=== PATIENT | male | born 1945 | race Caucasian/White ===

== ENCOUNTER 2020-07-05 20:21 | Inpatient (IN) ==
[2020-07-05 21:39] LABS: Basophils # (auto) 0.01 K/uL (0-0.2); Basophils % (auto) 0.1 %; Eosinophils # (auto) 0.09 K/uL (0-0.5); Eosinophils % (auto) 1.3 %; Hematocrit (blood only) 38.9 % (42-52); Hemoglobin 13.5 g/dL (14.0-18.0); Immature Granulocytes # (auto) 0.02 K/uL (0.00-0.02); Immature Granulocytes % (auto) 0.3 %; Lymphocytes # (auto) 1.96 K/uL (1.2-3.4); Lymphocytes % (auto) 27.7 %; Mean Corpuscular Hemoglobin 31.8 pg (25-34); Mean Corpuscular Hgb Conc 34.7 g/dL (32-36); Mean Corpuscular Volume 91.5 fL (80-100); Mean Platelet Volume 9.3 fL (7.4-10.4); Monocytes # (auto) 0.65 K/uL (0.11-0.59); Monocytes % (auto) 9.2 %; Neutrophils # (auto) 4.34 K/uL (1.4-6.5); Neutrophils % (auto) 61.4 %; Platelet Count 249 K/uL (130-400); RDW Coefficient of Variation 12.8 % (11.5-14.5); Red Blood Count 4.25 M/uL (4.7-6.1); White Blood Count 7.07 K/uL (4.8-10.8)
[2020-07-05 21:43] LABS: BUN Creatinine Ratio 23.9 (10-20); Calcium 9.3 mg/dl (8.5-10.1); Creatinine Clr Calc Pharmacy 75.2 ml/min; Est GFR (African American) 103.2; Est GFR (Non-African American) 89.1; Magnesium 2.1 mg/dl (1.8-2.4); Potassium 3.3 mmol/L (3.5-5.1)
[2020-07-05 21:52] LABS: Partial Thromboplastin Ratio 0.9; Partial Thromboplastin Time 23.5 Seconds (21.0-31.0)
[2020-07-05] MEDS ORDERED: levETIRAcetam 1,000 MG in 0.9 % SODIUM CHLORIDE 100 ML IV STA (22:23)
--- NOTE | 2020-07-05 23:35 | History & Physical Report ---
Date of Service July 05, 2020 Assessment & Plan (1) Generalized seizure: Jayme Butler is a 74-year-old male with past medical history significant for neuropathy, tobacco use, and questionable seizure disorder; presents to the ER today following concern for seizure lasting approximately 1 minute. Seizure: -Uncertain etiology of patient's potential underlying seizure disorder -Labs on admission unimpressive for significant electrolyte abnormalities or potential sources for seizure -CT head demonstrating atherosclerotic calcifications within the anterior cranial vasculature, polyps versus mucous retention cyst and sinuses, chronic appearing small vessel ischemic disease with cerebral volume loss, however no acute intracranial abnormalities reported per VANNA Swanson loaded in ED -Neurology consulted appreciate recommendations -EEG ordered -Continue seizure precautions -Continue to monitor and replete electrolytes as needed -TSH in a.m. Peripheral neuropathy: -Continue gabapentin 100 mg TID Tobacco use: -Nicotine patch daily Diet: Regular CODE STATUS: Full code DVT prophylaxis: Deferred at this time Dispo: Admit to [facility] for continued observation (2) Peripheral neuropathy: (3) Tobacco use: History of Present Illness Primary Care Provider: NO PCP Jayme Butler is a 74-year-old male with past medical history significant for neuropathy, tobacco use, and questionable seizure disorder; presents to the ER today following concern for seizure lasting approximately 1 minute. Patient was with his sister when the seizure happened and reports that it lasted approximately 1 minute, however patient has no recollection of the seizure or any activity immediately preceding or following. Recognizes that he has previously been told he has a seizure disorder that last happened last year when patient was in [place]. During my interview with the patient, family was not available for collateral information. However according to ER provider during his conversations with patient's sister he reportedly did have urinary incontinence at that time, and generalized seizure-like activity. Patient does not regularly take medications for seizures, however is on gabapentin 100 mg for peripheral neuropathy (specifically in his legs) Allergies Allergy/AdvReac Type Severity Reaction Status Date / Time No Known Allergies Allergy Unverified 07/05/20 21:42 Home Medications Medication Instructions Recorded Confirmed Type acetaminophen [Tylenol Extra 1,000 mg PO Q6H PRN 07/05/20 07/05/20 History Strength] gabapentin 100 mg PO TID 07/05/20 07/05/20 History ibuprofen 400 mg PO Q6H PRN 07/05/20 07/05/20 History Past Med/Surg History Medical History No pertinent past medical history Surgical History No pertinent past surgical history Social History Smoking Status: Current every day smoker Tobacco Type: Cigarettes Second Hand Exposure: No; Do You Dip or Chew Tobacco: No; Tobacco Cessation Education Requested by Patient: No Hx Alcohol Use: No Hx Substance Use: No Preferred Language: Belarusian Communication Ability: Effective Hydroponics Worker Required: No Beliefs That Will Affect Care: None marital status: Current Living Situation: Family Current Living Situation Comment: lives with sister. Other Information That Helps Us Care for You: No Feels Safe at Home: Yes Safety Concerns: Feels Safe At This Time Assistive Devices: Cane Review of Systems Review of Systems: All systems reviewed & are unremarkable except as noted in HPI & below Physical Exam Constitutional: WD/WN, vitals as above + lethargic Eyes: PERRL, conjunctivae normal, anicteric sclerae Respiratory: normal respiratory effort, lungs clear to auscultation Auscultation: no crackles, no rales, no rhonchi and no wheezes Cardiovascular: Rate/Rhythm: regular rate and regular rhythm Heart Sounds: no gallop, no murmur and no cardiac rub Vessels: normal peripheral pulses; no JVD Extremities: no edema Gastrointestinal (Abdomen): Inspection/Auscultation: normal bowel sounds; abdomen not distended Percussion/Palpation: abdomen soft; abdomen nontender and no guarding Musculoskeletal: no cyanosis or clubbing, extremities motor strength 5/5 Skin: no rashes, warm and dry Neurologic: PERRL, EOMI, accommodation nl, no face palsy, no dysarthria CN's II-XI intact bilaterally and moves all extremities Psychiatric: Orientation: alert and oriented x 3 Results & Data Results & Data ([facility]) Vital Signs (Past 12 Hours) Vital Signs Temp Pulse Resp BP Pulse Ox 07/05/20 23:00 79 20 148/83 H 97 07/05/20 22:30 75 17 150/92 H 98 07/05/20 22:00 81 17 150/93 H 97 07/05/20 21:23 97 07/05/20 21:00 81 21 152/82 H 95 07/05/20 20:27 36.5 C 81 18 133/74 96 Laboratory Results 07/05/20 07/05/20 07/05/20 Range/Units 22:45 22:45 21:44 WBC (4.8-10.8) K/uL RBC (4.7-6.1) M/uL Hgb (14.0-18.0) g/dL Hct (42-52) % MCV (80-100) fL MCH (25-34) pg MCHC (32-36) g/dL RDW Std Deviation (36.4-46.3) fL RDW Coeff of Sabra (11.5-14.5) % Plt Count (130-400) K/uL MPV (7.4-10.4) fL Immature Gran % (Auto) % Neut % (Auto) % Lymph % (Auto) % [place] % (Auto) % Eos % (Auto) % Baso % (Auto) % Neut # (Auto) (1.4-6.5) K/uL Lymph # (Auto) (1.2-3.4) K/uL [place] # (Auto) (0.11-0.59) K/uL Eos # (Auto) (0-0.5) K/uL Baso # (Auto) (0-0.2) K/uL Immature Gran # (Auto) (0.00-0.02) K/uL PT (9.0-12.0) Seconds INR (0.9-1.1) APTT (21.0-31.0) Seconds PTT Ratio Sodium (136-145) mmol/L Potassium (3.5-5.1) mmol/L Chloride (98-107) mmol/L Carbon Dioxide (21-32) mmol/L Anion Gap (3-11) BUN (7-18) mg/dl Creatinine (0.6-1.4) mg/dl Est Cr Clr Drug Dosing ml/min Est GFR ( Amer) Est GFR (Non-Af Amer) BUN/Creatinine Ratio (10-20) Glucose (70-99) mg/dl Lactate 1.2 (0.4-2.0) mmol/L Calcium (8.5-10.1) mg/dl Magnesium (1.8-2.4) mg/dl Prolactin ng/ml COVID-19 Eval Order CovFluRsv at [facility] SARS-CoV-2 (PCR) NEGATIVE (Negative) Influenza Type A (PCR) Negative (Neg) Influenza Type B (PCR) Negative (Neg) RSV (RT-PCR) Negative (Neg) 07/05/20 07/05/20 07/05/20 Range/Units 20:38 20:38 20:38 WBC (4.8-10.8) K/uL RBC (4.7-6.1) M/uL Hgb (14.0-18.0) g/dL Hct (42-52) % MCV (80-100) fL MCH (25-34) pg MCHC (32-36) g/dL RDW Std Deviation (36.4-46.3) fL RDW Coeff of Sabra (11.5-14.5) % Plt Count (130-400) K/uL MPV (7.4-10.4) fL Immature Gran % (Auto) % Neut % (Auto) % Lymph % (Auto) % [place] % (Auto) % Eos % (Auto) % Baso % (Auto) % Neut # (Auto) (1.4-6.5) K/uL Lymph # (Auto) (1.2-3.4) K/uL [place] # (Auto) (0.11-0.59) K/uL Eos # (Auto) (0-0.5) K/uL Baso # (Auto) (0-0.2) K/uL Immature Gran # (Auto) (0.00-0.02) K/uL PT 10.0 (9.0-12.0) Seconds INR 1.0 (0.9-1.1) APTT 23.5 (21.0-31.0) Seconds PTT Ratio 0.9 Sodium 139 (136-145) mmol/L Potassium 3.3 L (3.5-5.1) mmol/L Chloride 107 (98-107) mmol/L Carbon Dioxide 27 (21-32) mmol/L Anion Gap 5.0 (3-11) BUN 19 H (7-18) mg/dl Creatinine 0.79 (0.6-1.4) mg/dl Est Cr Clr Drug Dosing 75.2 ml/min Est GFR ( Amer) 103.2 Est GFR (Non-Af Amer) 89.1 BUN/Creatinine Ratio 23.9 H (10-20) Glucose 99 (70-99) mg/dl Lactate (0.4-2.0) mmol/L Calcium 9.3 (8.5-10.1) mg/dl Magnesium 2.1 (1.8-2.4) mg/dl Prolactin 27.10 ng/ml COVID-19 Eval Order SARS-CoV-2 (PCR) (Negative) Influenza Type A (PCR) (Neg) Influenza Type B (PCR) (Neg) RSV (RT-PCR) (Neg) 07/05/20 Range/Units 20:38 WBC 7.07 (4.8-10.8) K/uL RBC 4.25 L (4.7-6.1) M/uL Hgb 13.5 L (14.0-18.0) g/dL Hct 38.9 L (42-52) % MCV 91.5 (80-100) fL MCH 31.8 (25-34) pg MCHC 34.7 (32-36) g/dL RDW Std Deviation 43.0 (36.4-46.3) fL RDW Coeff of Sabra 12.8 (11.5-14.5) % Plt Count 249 (130-400) K/uL MPV 9.3 (7.4-10.4) fL Immature Gran % (Auto) 0.3 % Neut % (Auto) 61.4 % Lymph % (Auto) 27.7 % [place] % (Auto) 9.2 % Eos % (Auto) 1.3 % Baso % (Auto) 0.1 % Neut # (Auto) 4.34 (1.4-6.5) K/uL Lymph # (Auto) 1.96 (1.2-3.4) K/uL [place] # (Auto) 0.65 H (0.11-0.59) K/uL Eos # (Auto) 0.09 (0-0.5) K/uL Baso # (Auto) 0.01 (0-0.2) K/uL Immature Gran # (Auto) 0.02 (0.00-0.02) K/uL PT (9.0-12.0) Seconds INR (0.9-1.1) APTT (21.0-31.0) Seconds PTT Ratio Sodium (136-145) mmol/L Potassium (3.5-5.1) mmol/L Chloride (98-107) mmol/L Carbon Dioxide (21-32) mmol/L Anion Gap (3-11) BUN (7-18) mg/dl Creatinine (0.6-1.4) mg/dl Est Cr Clr Drug Dosing ml/min Est GFR ( Amer) Est GFR (Non-Af Amer) BUN/Creatinine Ratio (10-20) Glucose (70-99) mg/dl Lactate (0.4-2.0) mmol/L Calcium (8.5-10.1) mg/dl Magnesium (1.8-2.4) mg/dl Prolactin ng/ml COVID-19 Eval Order SARS-CoV-2 (PCR) (Negative) Influenza Type A (PCR) (Neg) Influenza Type B (PCR) (Neg) RSV (RT-PCR) (Neg) Diagnostic Findings CT HEAD: Comparison is made to CT head on 04/29/2020. No acute intracranial abnormality identified. Prominent chronic small vessel ischemic disease and cerebral volume loss, similar compared to prior exam. Polyps versus mucous retention cysts in the maxillary sinuses, left sphenoid sinus, and left ethmoid air cells. Mild mucosal thickening in the ethmoid air cells. Atherosclerotic calcifications in the intracranial vasculature. Radiologist: Sana Rodríguez M.D. Medications Administered Current Inpatient Medications Acetaminophen (Acetaminophen 325 Mg Tab) 650 mg PO Q4H PRN PRN Reason: pain/fever Stop: 08/05/20 00:41 Al Hydrox/Mg Hydrox/Simethicone (Aluminum/Magnesium Susp 30 Ml Udc) 30 ml PO Q6H PRN PRN Reason: Dyspepsia Stop: 08/05/20 00:41 Gabapentin (Gabapentin 100 Mg Cap) 100 mg PO TID KERVIN Stop: 08/05/20 08:59 Magnesium Hydroxide (Magnesium Hydroxide Susp 30 Ml Udc) 30 ml PO Q6H PRN PRN Reason: Constipation Stop: 08/05/20 00:41 Ondansetron HCl (Ondansetron Inj 2 Mg/Ml 2 Ml Vial) 4 mg IV Q6H PRN PRN Reason: Nausea Stop: 08/05/20 00:41 Polyethylene Glycol (Polyethylene (Miralax) 17 Gm Pack) 17 gm PO DAILY PRN PRN Reason: Constipation Stop: 08/05/20 00:41 Supervising Physician Co-Signing Physician Notes Attending addendum: I have physically seen this patient, have supervised the medical residents activities, and agree with the H&P unless as otherwise noted. Assessment and Plan: Seizure activity- Loaded with Keppra in ED, continue 500 mg IV twice daily Seizure precautions order EEG and MRI brain Consult neurology Peripheral neuropathy- Continue gabapentin 100 mg p.o. 3 times daily Tobacco use disorder- Nicotine patch Remaining orders and notations as noted Resident Activity Tracking Resident Involvement: Resident Care Provided Care Provided: Adult Hospital Medicine
[2020-07-05 23:40] LABS: Influenza A virus by PCR Negative (Neg); Influenza B virus by PCR Negative (Neg); RSV by PCR Negative (Neg); SARS CoV2 RNA(COVID-19) InHosp NEGATIVE (Negative)
--- NOTE | 2020-07-06 00:09 | Emergency Department Note ---
History of Present Illness General Chief complaint: Seizure Time Seen by Provider: 07/05/20 21:14 Source: patient and family (Sister) History of Present Illness Provider complaint: Seizure Onset (ago): hour(s) 2 Associated symptoms: + seizure; no chest pain, no cough, no fever/chills, no headaches, no nausea/vomiting, no rash, no shortness of breath, no syncope and no weakness 74-year-old male presents emergency department with his sister at bedside for seizure. Seizure reports at approximately 1930 the patient had a seizure. Patient did not hit his head. Patient was sitting down. Sister reports that seizure lasted approximately 1 minute. Patient reports he did not remember anything. Patient did not bite his tongue. Patient did have urinary incontinence. Patient sister states that the patient has had a history of seizures in the past. She reports that the patient has been having increasing abnormal behavior. She states this happened roughly in November when he was in [place] and she thinks that the patient had a traumatic brain injury in [place]. She st ates that the patient did not know what happened and woke up in a [place] hospital. Patient is not on any seizure medications but is on gabapentin 100 mg p.o. 3 times daily for his neuropathy and bilateral lower extremity pain. Home Medications Medication Instructions Recorded Confirmed Type acetaminophen [Tylenol Extra 1,000 mg PO Q6H PRN 07/05/20 07/05/20 History Strength] gabapentin 100 mg PO TID 07/05/20 07/05/20 History ibuprofen 400 mg PO Q6H PRN 07/05/20 07/05/20 History Allergies Allergy/AdvReac Type Severity Reaction Status Date / Time No Known Allergies Allergy Unverified 07/05/20 21:42 Past Med/Surg History Medical History No pertinent past medical history Surgical History No pertinent past surgical history Social History Smoking Status: Current every day smoker Tobacco Type: Cigarettes Hx Alcohol Use: No Hx Substance Use: No Feels Safe at Home: Yes Review of Systems A total of 10 systems reviewed and were otherwise negative Physical Exam Vital Signs Vital Signs - 24 hr 07/05/20 20:27 07/05/20 21:00 07/05/20 21:23 Temperature 36.5 C Temperature Source Oral Pulse Rate 81 81 Pulse Rate from SpO2 Sensor 79 Respiratory Rate 18 21 Blood Pressure 133/74 152/82 H Blood Pressure Mean 93 105 Pulse Oximetry 96 95 97 Oxygen Delivery Method Room Air Room Air Room Air Sepsis Recent Fever Within 48 Hours No Sepsis New/Unexplained Change in Mental Status N/A Sepsis Action Taken by Nursing No Action Required 07/05/20 22:00 07/05/20 22:30 07/05/20 23:00 Temperature Temperature Source Pulse Rate 81 75 79 Pulse Rate from SpO2 Sensor 85 71 78 Respiratory Rate 17 17 20 Blood Pressure 150/93 H 150/92 H 148/83 H Blood Pressure Mean 112 111 104 Pulse Oximetry 97 98 97 Oxygen Delivery Method Room Air Room Air Room Air Sepsis Recent Fever Within 48 Hours Sepsis New/Unexplained Change in Mental Status Sepsis Action Taken by Nursing 07/05/20 23:30 07/06/20 00:00 Temperature Temperature Source Pulse Rate 80 70 Pulse Rate from SpO2 Sensor Respiratory Rate 20 18 Blood Pressure 141/85 H 125/79 Blood Pressure Mean 103 94 Pulse Oximetry 99 99 Oxygen Delivery Method Room Air Room Air Sepsis Recent Fever Within 48 Hours Sepsis New/Unexplained Change in Mental Status Sepsis Action Taken by Nursing Physical Exam GENERAL: He is oriented to person, place, and time. He appears well-developed and well-nourished. He does not appear distressed. HENT: Exam performed. - Head: Normocephalic and atraumatic. - Right Ear: External ear normal. No mastoid tenderness. - Left Ear: External ear normal. No mastoid tenderness. - Mouth/Throat: The oropharynx is clear and moist. No trismus in the jaw. No dental abscesses or uvula swelling. No oropharyngeal exudate or tonsillar abscesses. Multiple missing teeth that is chronic. No evidence of tongue bite. EYES: Conjunctivae and EOM are normal. Pupils are equal, round, and reactive to light. Right eye exhibits no discharge. Left eye exhibits no discharge. No scleral icterus. NECK: Normal range of motion. Neck supple. No JVD present. No spinous process tenderness present. No carotid bruit present. No rigidity. No tracheal deviation and normal range of motion present. No Brudzinski's sign and no Kernig's sign noted. CV: Normal rate, regular rhythm, normal heart sounds and intact distal pulses. There is no peripheral edema. Palpable radial pulses bue. PULM/CHEST: Effort normal and breath sounds normal. No respiratory distress. No stridor. He has no wheezes. He has no rales. - Chest Wall: He exhibits no tenderness. ABD: The abdomen is soft. Bowel sounds are normal. He has no distension. No mass is present. There is no tenderness. There is no rebound, no guarding, no Avalos's sign and no tenderness at McBurney's point. Rovsig negative. MUSC/SKEL: Normal range of motion. There is no peripheral edema, tenderness or deformity. LYMPH: No cervical adenopathy. NEURO: He is alert and oriented to person, place, and time. He has normal strength. No cranial nerve deficit or sensory deficit. Coordination and gait normal. GCS eye subscore is 4. GCS verbal subscore is 5. GCS motor subscore is 6. Cerebellar tests wnl. SKIN: Skin is warm and dry. He is not diaphoretic. PSYCH: He has a normal mood and affect. Behavior is normal. Judgment and thought content normal. Course Course 2113: The patient was evaluated in room C4. A complete history and physical exam was performed Cardiac monitoring: An order was placed for continuous cardiac monitoring. The monitor shows a rate of 80 with sinus rhythm I explained to the patient and the patient sister at bedside that we did initiate a work-up consisting of CT of the head and lab work. The sister was very upset and stated that his CT would not be helpful and is asking that the patient be evaluated by neurologist immediately. I explained to her that there is no need to call in the neurologist from home at this time and that we would start with the initial work-up plan as planned and then contact neurology as needed. 2229: Vital signs stable. Patient has had no seizure-like activity in the emerg ency department. CT of the head within normal limits. Lactic acid within normal limits. Prolactin is elevated consistent with the history of seizure. I discussed the case with the neurologist on-call Dr. Virk. I explained to her that I felt that the patient should be admitted to the hospital. She recommends starting the patient on Keppra 1 g IV piggyback and then she will evaluate the patient in the morning. She recommends a nonemergent MRI of the brain. Discussed with the hospitalist team Dr. Leblanc who will evaluate the patient. I did inform the sister at bedside and she thanked me for admitting the patient to the hospital for neurology evaluation. Administered Medications Discontinued Medications Levetiracetam 1,000 mg/ Sodium (Chloride) 110 mls @ 440 mls/hr IV NOW STA Stop: 07/05/20 22:37 Last Infusion: 07/05/20 23:03 Dose: 0 mls/hr Documented by: [id number] Admin: 07/05/20 22:47 Dose: 440 mls/hr Documented by: [id number] Medical Decision Making Laboratory Data Result diagrams: 07/05/20 20:38 07/05/20 20:38 Lab Results 07/05/20 07/05/20 07/05/20 Range/Units 20:38 20:38 20:38 WBC 7.07 (4.8-10.8) K/uL RBC 4.25 L (4.7-6.1) M/uL Hgb 13.5 L (14.0-18.0) g/dL Hct 38.9 L (42-52) % MCV 91.5 (80-100) fL MCH 31.8 (25-34) pg MCHC 34.7 (32-36) g/dL RDW Std Deviation 43.0 (36.4-46.3) fL RDW Coeff of Sabra 12.8 (11.5-14.5) % Plt Count 249 (130-400) K/uL MPV 9.3 (7.4-10.4) fL Immature Gran % (Auto) 0.3 % Neut % (Auto) 61.4 % Lymph % (Auto) 27.7 % [place] % (Auto) 9.2 % Eos % (Auto) 1.3 % Baso % (Auto) 0.1 % Neut # (Auto) 4.34 (1.4-6.5) K/uL Lymph # (Auto) 1.96 (1.2-3.4) K/uL [place] # (Auto) 0.65 H (0.11-0.59) K/uL Eos # (Auto) 0.09 (0-0.5) K/uL Baso # (Auto) 0.01 (0-0.2) K/uL Immature Gran # (Auto) 0.02 (0.00-0.02) K/uL PT 10.0 (9.0-12.0) Seconds INR 1.0 (0.9-1.1) APTT 23.5 (21.0-31.0) Seconds PTT Ratio 0.9 Sodium 139 (136-145) mmol/L Potassium 3.3 L (3.5-5.1) mmol/L Chloride 107 (98-107) mmol/L Carbon Dioxide 27 (21-32) mmol/L Anion Gap 5.0 (3-11) BUN 19 H (7-18) mg/dl Creatinine 0.79 (0.6-1.4) mg/dl Est Cr Clr Drug Dosing 75.2 ml/min Est GFR ( Amer) 103.2 Est GFR (Non-Af Amer) 89.1 BUN/Creatinine Ratio 23.9 H (10-20) Glucose 99 (70-99) mg/dl Lactate (0.4-2.0) mmol/L Calcium 9.3 (8.5-10.1) mg/dl Magnesium 2.1 (1.8-2.4) mg/dl Prolactin ng/ml COVID-19 Eval Order SARS-CoV-2 (PCR) (Negative) Influenza Type A (PCR) (Neg) Influenza Type B (PCR) (Neg) RSV (RT-PCR) (Neg) 07/05/20 07/05/20 07/05/20 Range/Units 20:38 21:44 22:45 WBC (4.8-10.8) K/uL RBC (4.7-6.1) M/uL Hgb (14.0-18.0) g/dL Hct (42-52) % MCV (80-100) fL MCH (25-34) pg MCHC (32-36) g/dL RDW Std Deviation (36.4-46.3) fL RDW Coeff of Sabra (11.5-14.5) % Plt Count (130-400) K/uL MPV (7.4-10.4) fL Immature Gran % (Auto) % Neut % (Auto) % Lymph % (Auto) % [place] % (Auto) % Eos % (Auto) % Baso % (Auto) % Neut # (Auto) (1.4-6.5) K/uL Lymph # (Auto) (1.2-3.4) K/uL [place] # (Auto) (0.11-0.59) K/uL Eos # (Auto) (0-0.5) K/uL Baso # (Auto) (0-0.2) K/uL Immature Gran # (Auto) (0.00-0.02) K/uL PT (9.0-12.0) Seconds INR (0.9-1.1) APTT (21.0-31.0) Seconds PTT Ratio Sodium (136-145) mmol/L Potassium (3.5-5.1) mmol/L Chloride (98-107) mmol/L Carbon Dioxide (21-32) mmol/L Anion Gap (3-11) BUN (7-18) mg/dl Creatinine (0.6-1.4) mg/dl Est Cr Clr Drug Dosing ml/min Est GFR ( Amer) Est GFR (Non-Af Amer) BUN/Creatinine Ratio (10-20) Glucose (70-99) mg/dl Lactate 1.2 (0.4-2.0) mmol/L Calcium (8.5-10.1) mg/dl Magnesium (1.8-2.4) mg/dl Prolactin 27.10 ng/ml COVID-19 Eval Order CovFluRsv at [facility] SARS-CoV-2 (PCR) (Negative) Influenza Type A (PCR) (Neg) Influenza Type B (PCR) (Neg) RSV (RT-PCR) (Neg) 07/05/20 Range/Units 22:45 WBC (4.8-10.8) K/uL RBC (4.7-6.1) M/uL Hgb (14.0-18.0) g/dL Hct (42-52) % MCV (80-100) fL MCH (25-34) pg MCHC (32-36) g/dL RDW Std Deviation (36.4-46.3) fL RDW Coeff of Sabra (11.5-14.5) % Plt Count (130-400) K/uL MPV (7.4-10.4) fL Immature Gran % (Auto) % Neut % (Auto) % Lymph % (Auto) % [place] % (Auto) % Eos % (Auto) % Baso % (Auto) % Neut # (Auto) (1.4-6.5) K/uL Lymph # (Auto) (1.2-3.4) K/uL [place] # (Auto) (0.11-0.59) K/uL Eos # (Auto) (0-0.5) K/uL Baso # (Auto) (0-0.2) K/uL Immature Gran # (Auto) (0.00-0.02) K/uL PT (9.0-12.0) Seconds INR (0.9-1.1) APTT (21.0-31.0) Seconds PTT Ratio Sodium (136-145) mmol/L Potassium (3.5-5.1) mmol/L Chloride (98-107) mmol/L Carbon Dioxide (21-32) mmol/L Anion Gap (3-11) BUN (7-18) mg/dl Creatinine (0.6-1.4) mg/dl Est Cr Clr Drug Dosing ml/min Est GFR ( Amer) Est GFR (Non-Af Amer) BUN/Creatinine Ratio (10-20) Glucose (70-99) mg/dl Lactate (0.4-2.0) mmol/L Calcium (8.5-10.1) mg/dl Magnesium (1.8-2.4) mg/dl Prolactin ng/ml COVID-19 Eval Order SARS-CoV-2 (PCR) NEGATIVE (Negative) Influenza Type A (PCR) Negative (Neg) Influenza Type B (PCR) Negative (Neg) RSV (RT-PCR) Negative (Neg) Imaging Data Radiologist's Impression: Preliminary Findings Only See Final Report For Complete Findings CT HEAD: Comparison is made to CT head on 04/29/2020. No acute intracranial abnormality identified. Prominent chronic small vessel ischemic disease and cerebral volume loss, similar compared to prior exam. Polyps versus mucous retention cysts in the maxillary sinuses, left sphenoid sinus, and left ethmoid air cells. Mild mucosal thickening in the ethmoid air cells. Atherosclerotic calcifications in the intracranial vasculature. Radiologist: Sana Rodríguez M.D. Study ready at 22:01 and initial results transmitted at 22:09 MDM Narrative 2113: The patient was evaluated in room C4. A complete history and physical exam was performed Cardiac monitoring: An order was placed for continuous cardiac monitoring. The monitor shows a rate of 80 with sinus rhythm I explained to the patient and the patient sister at bedside that we did initiate a work-up consisting of CT of the head and lab work. The sister was very upset and stated that his CT would not be helpful and is asking that the p atient be evaluated by neurologist immediately. I explained to her that there is no need to call in the neurologist from home at this time and that we would start with the initial work-up plan as planned and then contact neurology as needed. 2230: Vital signs stable. Patient has had no seizure-like activity in the emergency department. CT of the head within normal limits. Lactic acid within normal limits. Prolactin is elevated consistent with the history of seizure. I discussed the case with the neurologist on-call Dr. Virk. I explained to her that I felt that the patient should be admitted to the hospital. She recommends starting the patient on Keppra 1 g IV piggyback and then she will evaluate the patient in the morning. She recommends a nonemergent MRI of the brain. Discussed with the hospitalist team Dr. Leblanc who will evaluate the patient. I did inform the sister at bedside and she thanked me for admitting the patient to the hospital for neurology evaluation. Impression & Plan Generalized seizure Discharge Plan Visit Data Chief Complaint: Seizure ED Provider: Rob Ramirez Discharge Problem: Generalized seizure Patient Disposition: Admitted As Inpatient Forms Stand Alone Forms: My [facility] Prescriptions Prescriptions: No Action acetaminophen [Tylenol Extra Strength] 500 mg Tablet 1,000 mg PO Q6H PRN (Reason: Pain) RF: 0 ibuprofen 200 mg Tablet 400 mg PO Q6H PRN (Reason: Pain) RF: 0 gabapentin 100 mg capsule 100 mg PO TID RF: 0 Referrals Referrals: PCP,NO [Primary Care Provider] -
[2020-07-06] MEDS ORDERED: MAGNESIUM HYDROXIDE SUSP 30 ML UDC PO PRN (00:42)
[2020-07-06] MEDS ORDERED: ACETAMINOPHEN 325 MG TAB PO PRN (00:42)
[2020-07-06] MEDS ORDERED: ONDANSETRON INJ 2 MG/ML 2 ML VIAL IV PRN (00:42)
[2020-07-06] MEDS ORDERED: POLYETHYLENE (MIRALAX) 17 GM PACK PO PRN (00:42)
[2020-07-06] MEDS ORDERED: ALUMINUM/MAGNESIUM SUSP 30 ML UDC PO PRN (00:42)
[2020-07-06 05:13] LABS: Appearance Urine Clear (Clear); Bilirubin Urine Negative (Negative); Blood Urine Negative (Negative); Color Urine Yellow; Glucose Urine UA Negative (Negative); Ketones Urine Trace (Negative); Leukocyte Esterase Urine Negative (Negative); Nitrite Urine Negative (Negative); Protein Urine Negative (Negative); Specific Gravity Urine 1.013 (1.000-1.030); Urobilinogen Urine Negative (Negative)
[2020-07-06 06:49] LABS: Basophils # (auto) 0.01 K/uL (0-0.2); Basophils % (auto) 0.2 %; Eosinophils # (auto) 0.04 K/uL (0-0.5); Eosinophils % (auto) 0.7 %; Hemoglobin 12.6 g/dL (14.0-18.0); Immature Granulocytes # (auto) 0.01 K/uL (0.00-0.02); Immature Granulocytes % (auto) 0.2 %; Lymphocytes # (auto) 1.51 K/uL (1.2-3.4); Mean Corpuscular Hemoglobin 32.1 pg (25-34); Mean Corpuscular Volume 91.6 fL (80-100); Mean Platelet Volume 8.9 fL (7.4-10.4); Monocytes # (auto) 0.58 K/uL (0.11-0.59); Monocytes % (auto) 10.8 %; Neutrophils # (auto) 3.24 K/uL (1.4-6.5); Neutrophils % (auto) 60.1 %; Platelet Count 235 K/uL (130-400); RDW Coefficient of Variation 12.9 % (11.5-14.5); RDW Standard Deviation 43.7 fL (36.4-46.3); Red Blood Count 3.93 M/uL (4.7-6.1); White Blood Count 5.39 K/uL (4.8-10.8)
[2020-07-06 07:04] LABS: BUN Creatinine Ratio 20.9 (10-20); Calcium 9.1 mg/dl (8.5-10.1); Creatinine Clr Calc Pharmacy 79.5 ml/min; Est GFR (African American) 107.3; Est GFR (Non-African American) 92.5; Magnesium 2.1 mg/dl (1.8-2.4); Potassium 3.7 mmol/L (3.5-5.1)
[2020-07-06 07:15] LABS: Phosphorus 3.4 mg/dl (2.5-4.9); Thyroid Stimulating Hormone 0.56 uIu/ml (0.300-4.500)
--- NOTE | 2020-07-06 07:31 | CT Scan Report ---
CT head/brain wo con CLINICAL HISTORY: seizure COMPARISON STUDY: 09/26 2020 TECHNIQUE: Axial CT of the brain is performed from the vertex to the skull base. IV contrast was not administered for this examination. A dose lowering technique was utilized adhering to the principles of ALARA. CT DOSE: 614.27 mGy.cm FINDINGS: No intra or extra-axial mass lesions are visualized. There is no CT evidence of acute cortical infarc tion. There is no evidence of midline shift. There is no acute hemorrhage. No calvarial fractures ar e visualized. There are moderately extensive white matter hypodensities likely on a small vessel basis. There is no evidence of pathologic ventricular dilatation. There are maxillary sinus polyp/retention cyst.s. IMPRESSION: No acute intracranial findings ACT 112: Negative or not required by law. Electronically signed by: Efrem Meredith M.D. 07/06/2020 7:29 AM
[2020-07-06] MEDS: NICOTINE 14 MG/24 HR PATCH TD SCH (08:53)
[2020-07-06] MEDS: GABAPENTIN 100 MG CAP PO SCH ×3 (08:54→21:05)
--- NOTE | 2020-07-06 10:32 | Neurology Consultation ---
Date of Consultation July 06, 2020 Assessment & Plan (1) Generalized seizure: Jayme Butler is a 74 yo man w/ PMH of DM c/b neuropathy, tobacco abuse and memory issues who p/t [facility] after having a witnessed seizure. # Seizure: family reports that this is at least his second seizure that they are aware of - continue keppra 750mg bid - MRI brain w/ seizure protocol pending - EEG pending (can be done as an outpatient if he desires d/c today after MRI) - f/u with neurology clinic in 4-6 weeks to check in with JOLLY Wall # Memory issues: will need outpatient follow up for this. - recommend placing a formal neuropsych consultation as an outpatient (remainder of workup has already been completed with B12/TSH and MRI brain while admitted) Thank you for this interesting consult. Plan of care discussed with primary team. Please call or text with questions. History of Present Illness Attending Physician: Marco A Roman, History of Present Illness Jayme Butler is a 74 yo man w/ PMH of DM c/b neuropathy, tobacco abuse and memory issues who p/t [facility] after having a witnessed seizure. In the ED, sister reported that he had a witnessed seizure that lasted about 1 minute a/w loss of bladder but not bowel and no tongue biting. Patient is amnestic to event. Sister reported that he had one other seizure while staying in [place] this past summer/fall. He was afebrile, BP 133/74, heart rate 81, respiratory rate 18, satting 96% on room air. Labs notable for WBC 7.07, hemoglobin 13.5 with MCV 91.5, platelets 249, sodium 139, potassium low 3.3, creatinine 0.79, glucose 99, INR 1, anion gap 5, calcium/magnesium within normal, lactate 1.2, prolactin elevated to 27.1, Covid negative, UA no infection, TSH WNL. Imaging independently reviewed. CT head shows no hemorrhage or hypodensity, mild to moderate generalized atrophy with ex vacuo dilation, moderate SVID present. Loaded with 1g keppra in the ED. On examination, he reports that he was in his normal state of health yesterday but does not recall the event that brought him to the hospital. Does endorse occasional marijuana usage but none recently, denies alcohol use. Allergies Allergy/AdvReac Type Severity Reaction Status Date / Time No Known Allergies Allergy Unverified 07/05/20 21:42 Home Medications Medication Instructions Recorded Confirmed Type acetaminophen [Tylenol Extra 1,000 mg PO Q6H PRN 07/05/20 07/05/20 History Strength] gabapentin 100 mg PO TID 07/05/20 07/05/20 History ibuprofen 400 mg PO Q6H PRN 07/05/20 07/05/20 History Patient History Medical History No pertinent past medical history Surgical History No pertinent past surgical history Social History Smoking Status: Current every day smoker Tobacco Type: Cigarettes Second Hand Exposure: No; Do You Dip or Chew Tobacco: No; Tobacco Cessation Education Requested by Patient: No Hx Alcohol Use: No Hx Substance Use: No Preferred Language: Armenian Communication Ability: Effective 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 Other Information That Helps Us Care for You: No Feels Safe at Home: Yes Safety Concerns: Feels Safe At This Time Assistive Devices: Cane Review of Systems Review of Systems: 10 point review of systems completed and negative except as in HPI. Exam (Neuro) Physical Exam: General Exam: GEN: NAD, sitting in bed. HEENT: No conjunctival injection, no rhinorrhea. CV: RRR, no peripheral edema PULM: Nonlabored respirations on room air. Neuro Exam: MS: Awake and Alert. Oriented to person and year, not place or month. Speech fluent and appropriate without dysarthria or paraphasic errors. Language intact including naming, comprehension, repetition. Cognition and memory mildly impaired. Attention intact. No neglect. CN: Visual oro full. No extinction to double simultaneous stimuli. Unable to visualize fundi on fundoscopic exam. PERRLA OU. EOMI without nystagmus. Facial sensation intact to LT. Facial muscles full and symmetric. Hearing intact to conversation. Shoulder shrug normal. Tongue midline. MOTOR: Normal bulk and tone. No pronator drift. BUE strength 5/5 at deltoids, biceps, triceps, wrist flexors and extensors bilaterally. BLE strength 5/5 at iliopsoas, hamstrings, quadriceps, tibialis anterior, and gastrocnemius bilaterally. REFLEXES: Trace at biceps, triceps, brachioradialis, absent patella and absent Achilles bilaterally. Flexor plantar responses bilaterally. SENSORY: Intact to LT without extinction to double simultaneous stimuli. Vibration diminished in hands and BLEs up to the knees. COORDINATION: No dysmetria or ataxia on [id number] bilaterally. Normal Charlie bilaterally. GAIT: deferred given physical status Results & Data ([facility]) Vital Signs (Past 12 Hours) Vital Signs Temp Pulse Pulse Resp BP BP Pulse Ox 07/06/20 07:14 36.5 C 62 18 142/82 H 95 07/06/20 00:35 36.7 C 78 16 152/62 H 96 07/06/20 00:00 70 18 125/79 99 07/05/20 23:30 80 20 141/85 H 99 07/05/20 23:00 79 20 148/83 H 97 07/05/20 22:30 75 17 150/92 H 98 PG Care Time/CCT Total # of Minutes Spent Total Time Spent with Patient: Total time spent is greater than 50% in coordination of care (as documented) at patient's floor/unit and/or counseling patient: Coding Level of Care Code 77668 Initial Inpt Care Lvl 3 Diagnoses Generalized seizure R56.9
[2020-07-06] MEDS: levETIRAcetam 250 MG TAB PO SCH ×2 (11:02→21:04)
--- NOTE | 2020-07-06 13:50 | XRay Report ---
ORBIT RADIOGRAPHS 3 VIEWS HISTORY: pre-MRI screening. COMPARISON: None. FINDINGS: There are no radiopaque foreign bodies identified within the orbits. IMPRESSION: No radiopaque foreign bodies identified within the orbits. ACT 112: Negative or not required by law. Electronically signed by: Efrem Meredith M.D. 07/06/2020 1:48 PM
[2020-07-06] MEDS ORDERED: GADOBUTROL 65ML VIAL IV ONE (14:49)
--- NOTE | 2020-07-06 15:00 | Magnetic Resonance Report ---
MRI OF THE BRAIN WITHOUT AND WITH IV CONTRAST CLINICAL HISTORY: seizure COMPARISON STUDY: Noncontrast head CT dated 07/05/2020 TECHNIQUE: MRI of the brain was performed from the vertex to the skull base utilizing various T1 and T2 weighted sequences. Following the IV administration of 7 mL of Gadavist contrast, additional enhan jerrell images were obtained. FINDINGS: Sagittal T1, axial diffusion, proton density and T2 weighted axial, coronal FLAIR, and pre and post a xial T1-weighted images were acquired. These were supplemented with post gadolinium coronal T1 weight ed images. No intra or extra-axial mass lesions are visualized. Axial diffusion-weighted images reveal no evidence of acute or subacute infarction. There is mild ventricular dilatation, likely secondary to volume loss Proton density T2-weighted and FLAIR images reveal moderately extensive extensive foci of increased T 2 signal within the white matter, likely on a small vessel basis. There is a 3 mm right basal ganglia lacunar infarct There are no abnormal flow voids. There is no evidence of pathologic enhancement. IMPRESSION: 1. No acute intracranial findings 2. No evidence of acute or subacute infarction 3. No evidence of intracranial mass 4. Moderately extensive white matter disease, statistically on a small vessel basis ACT 112: Negative or not required by law. Electronically signed by: Efrem Meredith M.D. 07/06/2020 2:59 PM
--- NOTE | 2020-07-06 15:29 | Hospitalist Progress Note ---
Date of Service July 06, 2020 Assessment & Plan (1) Generalized seizure: Jayme Butler is a 74-year-old male with past medical history significant for neuropathy, tobacco use, and questionable seizure disorder; presents to the ER today following concern for seizure lasting approximately 1 minute. Seizure: -Uncertain etiology of patient's potential underlying seizure disorder -Labs on admission unimpressive for significant electrolyte abnormalities or potential sources for seizure -CT head : No acute intracranial findings -Brain MRI: No acute intracranial findings. No evidence of acute or subacute infarction. No evidence of intracranial mass. Moderately extensive white matter disease, statistically on a small vessel basis -Keppra loaded in ED. Continue keppra 750mg bid -Continue seizure precautions -TSH WNL -EEG pending but can be done as an outpatient -Neurology consulted appreciate recommendations. Will f/u with neurology clinic in 4-6 weeks to check in Memory issues: - will need outpatient follow up for this. - recommend a formal neuropsych consultation as an outpatient Peripheral neuropathy: -Continue gabapentin 100 mg TID Tobacco use: -Nicotine patch daily Diet: Regular CODE STATUS: Full code DVT prophylaxis: Deferred at this time Dispo: MedSurg for continued observation. Pt's sister will not take him back. CM working on [place] home in [facility] Admission and Anticipated Discharge Date Admission Date: July 05, 2020 Supervising Physician Co-Signing Physician Notes I personally examined the patient and verified all fuentes points of history and exam, discussed case, and agree with decision making with Dr Kilgore. feeling ok. doesn't recall seizure, didn't really know what a seizure was, but after i explained it, was able to express a reasonable understanding of dx and situation. vitals noted nad heent nc at mmm breathing unlabored no accessory muscles good effort skin no rashes no pallor or icterus neuro no focal deficits seizure -keppra secondary risk reduction homelessness -was living with sister who will not take him back now -working w case management on safe disposition [facility] -unethical to discharge to homelessness, will keep here until safe disposition can be arranged. Subjective Seen bedside, no acute overnight events. No additional seizures. Pt tolerating PO. No other acute concerns or complaints. Review of Systems Review of Systems: All systems reviewed & are unremarkable except as noted in HPI & below Physical Exam Constitutional: WD/WN, vitals as above Eyes: PERRL, conjunctivae normal, anicteric sclerae ENMT: external ear and nose normal, oropharynx normal Respiratory: normal respiratory effort, lungs clear to auscultation Cardiovascular: RRR, no murmur, no edema Gastrointestinal (Abdomen): normal bowel sounds, soft, nontender, no hepatosplenomegaly Skin: no rashes, warm and dry Psychiatric: A+Ox3, euthymic affect Results & Data Results & Data ([facility]) Vital Signs (Past 12 Hours) Vital Signs Temp Pulse Resp BP Pulse Ox 07/06/20 14:54 36.5 C 62 16 173/94 H 95 07/06/20 07:14 36.5 C 62 18 142/82 H 95 Laboratory Results Laboratory Results - last 24 hr 07/05/20 07/05/20 07/05/20 20:38 20:38 20:38 WBC 7.07 RBC 4.25 L Hgb 13.5 L Hct 38.9 L MCV 91.5 MCH 31.8 MCHC 34.7 RDW Std Deviation 43.0 RDW Coeff of Sabra 12.8 Plt Count 249 MPV 9.3 Immature Gran % (Auto) 0.3 Neut % (Auto) 61.4 Lymph % (Auto) 27.7 [place] % (Auto) 9.2 Eos % (Auto) 1.3 Baso % (Auto) 0.1 Neut # (Auto) 4.34 Lymph # (Auto) 1.96 [place] # (Auto) 0.65 H Eos # (Auto) 0.09 Baso # (Auto) 0.01 Immature Gran # (Auto) 0.02 PT 10.0 INR 1.0 APTT 23.5 PTT Ratio 0.9 Sodium 139 Potassium 3.3 L Chloride 107 Carbon Dioxide 27 Anion Gap 5.0 BUN 19 H Creatinine 0.79 Est Cr Clr Drug Dosing 75.2 Est GFR ( Amer) 103.2 Est GFR (Non-Af Amer) 89.1 BUN/Creatinine Ratio 23.9 H Glucose 99 Lactate Calcium 9.3 Phosphorus Magnesium 2.1 Vitamin B12 TSH Prolactin Urine Color Urine Appearance Urine pH Ur Specific [place] Urine Protein Urine Glucose (UA) Urine Ketones Urine Blood Urine Nitrite Urine Bilirubin Urine Urobilinogen Ur Leukocyte Esterase COVID-19 Eval Order SARS-CoV-2 (PCR) Influenza Type A (PCR) Influenza Type B (PCR) RSV (RT-PCR) 07/05/20 07/05/20 07/05/20 20:38 21:44 22:45 WBC RBC Hgb Hct MCV MCH MCHC RDW Std Deviation RDW Coeff of Sabra Plt Count MPV Immature Gran % (Auto) Neut % (Auto) Lymph % (Auto) [place] % (Auto) Eos % (Auto) Baso % (Auto) Neut # (Auto) Lymph # (Auto) [place] # (Auto) Eos # (Auto) Baso # (Auto) Immature Gran # (Auto) PT INR APTT PTT Ratio Sodium Potassium Chloride Carbon Dioxide Anion Gap BUN Creatinine Est Cr Clr Drug Dosing Est GFR ( Amer) Est GFR (Non-Af Amer) BUN/Creatinine Ratio Glucose Lactate 1.2 Calcium Phosphorus Magnesium Vitamin B12 TSH Prolactin 27.10 Urine Color Urine Appearance Urine pH Ur Specific [place] Urine Protein Urine Glucose (UA) Urine Ketones Urine Blood Urine Nitrite Urine Bilirubin Urine Urobilinogen Ur Leukocyte Esterase COVID-19 Eval Order CovFluRsv at [facility] SARS-CoV-2 (PCR) Influenza Type A (PCR) Influenza Type B (PCR) RSV (RT-PCR) 07/05/20 07/06/20 07/06/20 22:45 06:29 06:29 WBC 5.39 RBC 3.93 L Hgb 12.6 L Hct 36.0 L MCV 91.6 MCH 32.1 MCHC 35.0 RDW Std Deviation 43.7 RDW Coeff of Sabra 12.9 Plt Count 235 MPV 8.9 Immature Gran % (Auto) 0.2 Neut % (Auto) 60.1 Lymph % (Auto) 28.0 [place] % (Auto) 10.8 Eos % (Auto) 0.7 Baso % (Auto) 0.2 Neut # (Auto) 3.24 Lymph # (Auto) 1.51 [place] # (Auto) 0.58 Eos # (Auto) 0.04 Baso # (Auto) 0.01 Immature Gran # (Auto) 0.01 PT INR APTT PTT Ratio Sodium 141 Potassium 3.7 Chloride 109 H Carbon Dioxide 28 Anion Gap 4.0 BUN 15 Creatinine 0.72 Est Cr Clr Drug Dosing 79.5 Est GFR ( Amer) 107.3 Est GFR (Non-Af Amer) 92.5 BUN/Creatinine Ratio 20.9 H Glucose 106 H Lactate Calcium 9.1 Phosphorus 3.4 Magnesium 2.1 Vitamin B12 TSH 0.560 Prolactin Urine Color Urine Appearance Urine pH Ur Specific [place] Urine Protein Urine Glucose (UA) Urine Ketones Urine Blood Urine Nitrite Urine Bilirubin Urine Urobilinogen Ur Leukocyte Esterase COVID-19 Eval Order SARS-CoV-2 (PCR) NEGATIVE Influenza Type A (PCR) Negative Influenza Type B (PCR) Negative RSV (RT-PCR) Negative 07/06/20 07/06/20 10:36 Unknown WBC RBC Hgb Hct MCV MCH MCHC RDW Std Deviation RDW Coeff of Sabra Plt Count MPV Immature Gran % (Auto) Neut % (Auto) Lymph % (Auto) [place] % (Auto) Eos % (Auto) Baso % (Auto) Neut # (Auto) Lymph # (Auto) [place] # (Auto) Eos # (Auto) Baso # (Auto) Immature Gran # (Auto) PT INR APTT PTT Ratio Sodium Potassium Chloride Carbon Dioxide Anion Gap BUN Creatinine Est Cr Clr Drug Dosing Est GFR ( Amer) Est GFR (Non-Af Amer) BUN/Creatinine Ratio Glucose Lactate Calcium Phosphorus Magnesium Vitamin B12 376 TSH Prolactin Urine Color Yellow Urine Appearance Clear Urine pH 6.0 Ur Specific [place] 1.013 Urine Protein Negative Urine Glucose (UA) Negative Urine Ketones Trace H Urine Blood Negative Urine Nitrite Negative Urine Bilirubin Negative Urine Urobilinogen Negative Ur Leukocyte Esterase Negative COVID-19 Eval Order SARS-CoV-2 (PCR) Influenza Type A (PCR) Influenza Type B (PCR) RSV (RT-PCR) Medications Administered Current Inpatient Medications Acetaminophen (Acetaminophen 325 Mg Tab) 650 mg PO Q4H PRN PRN Reason: pain/fever Stop: 08/05/20 00:41 Al Hydrox/Mg Hydrox/Simethicone (Aluminum/Magnesium Susp 30 Ml Udc) 30 ml PO Q6H PRN PRN Reason: Dyspepsia Stop: 08/05/20 00:41 Gabapentin (Gabapentin 100 Mg Cap) 100 mg PO TID [facility] Stop: 08/05/20 08:59 Last Admin: 07/06/20 14:59 Dose: 100 mg Documented by: Levetiracetam (Levetiracetam 250 Mg Tab) 750 mg PO BID [facility] Stop: 08/05/20 10:44 Last Admin: 07/06/20 11:02 Dose: 750 mg Documented by: Magnesium Hydroxide (Magnesium Hydroxide Susp 30 Ml Udc) 30 ml PO Q6H PRN PRN Reason: Constipation Stop: 08/05/20 00:41 Miscellaneous (Remove Nicoderm Patch) 1 ea N/A DAILY@0859 [facility] Stop: 08/05/20 08:58 Last Admin: 07/06/20 01:38 Dose: Not Given Documented by: Nicotine (Nicotine 14 Mg/24 Hr Patch) 14 mg TD QAM [facility] Stop: 08/05/20 08:59 Last Admin: 07/06/20 08:53 Dose: 14 mg Documented by: Ondansetron HCl (Ondansetron Inj 2 Mg/Ml 2 Ml Vial) 4 mg IV Q6H PRN PRN Reason: Nausea Stop: 08/05/20 00:41 Polyethylene Glycol (Polyethylene (Miralax) 17 Gm Pack) 17 gm PO DAILY PRN PRN Reason: Constipation Stop: 08/05/20 00:41 Resident Activity Tracking Resident Involvement: Resident Care Provided Care Provided: Adult Hospital Medicine
--- NOTE | 2020-07-06 15:41 | Billing Data ---
Date of Service July 06, 2020 Coding Level of Care Code 72115 Subseq Hosp Care Lvl 2
--- NOTE | 2020-07-06 20:44 | Billing Data ---
Date of Service July 06, 2020 Coding Level of Care Code 17485 Initial Inpt Care Lvl 2
[2020-07-07 06:34] LABS: Basophils # (auto) 0.01 K/uL (0-0.2); Basophils % (auto) 0.1 %; Eosinophils # (auto) 0.04 K/uL (0-0.5); Eosinophils % (auto) 0.4 %; Hemoglobin 12.3 g/dL (14.0-18.0); Immature Granulocytes # (auto) 0.02 K/uL (0.00-0.02); Immature Granulocytes % (auto) 0.2 %; Lymphocytes # (auto) 1.87 K/uL (1.2-3.4); Lymphocytes % (auto) 18.7 %; Mean Corpuscular Hemoglobin 31.1 pg (25-34); Mean Corpuscular Hgb Conc 34.2 g/dL (32-36); Mean Corpuscular Volume 91.1 fL (80-100); Mean Platelet Volume 9.1 fL (7.4-10.4); Monocytes # (auto) 0.88 K/uL (0.11-0.59); Monocytes % (auto) 8.8 %; Neutrophils % (auto) 71.8 %; Platelet Count 202 K/uL (130-400); RDW Coefficient of Variation 12.8 % (11.5-14.5); RDW Standard Deviation 43.1 fL (36.4-46.3); Red Blood Count 3.95 M/uL (4.7-6.1); White Blood Count 10.02 K/uL (4.8-10.8)
[2020-07-07 06:51] LABS: BUN Creatinine Ratio 17.2 (10-20); Calcium 8.6 mg/dl (8.5-10.1); Creatinine Clr Calc Pharmacy 81.8 ml/min; Est GFR (African American) 108.5; Est GFR (Non-African American) 93.6; Potassium 3.7 mmol/L (3.5-5.1)
[2020-07-07] MEDS: GABAPENTIN 100 MG CAP PO SCH ×3 (08:46→21:14)
[2020-07-07] MEDS: NICOTINE 14 MG/24 HR PATCH TD SCH (08:47)
[2020-07-07] MEDS: levETIRAcetam 250 MG TAB PO SCH ×2 (08:47→21:14)
--- NOTE | 2020-07-07 12:41 | Hospitalist Progress Note ---
Date of Service July 07, 2020 Assessment & Plan (1) Generalized seizure: Jayme Butler is a 74-year-old male with past medical history significant for neuropathy, tobacco use, and questionable seizure disorder; presents to the ER following concern for seizure lasting approximately 1 minute. Seizure: -Uncertain etiology of patient's potential underlying seizure disorder -Labs on admission unimpressive for significant electrolyte abnormalities or potential sources for seizure -CT head : No acute intracranial findings -Brain MRI: No acute intracranial findings. No evidence of acute or subacute infarction. No evidence of intracranial mass. Moderately extensive white matter disease, statistically on a small vessel basis -Keppra loaded in ED. Continue keppra 750mg bid -Continue seizure precautions -TSH WNL -EEG pending but can be done as an outpatient -Neurology consulted appreciate recommendations. Will f/u with neurology clinic in 4-6 weeks to check in Memory issues: - will need outpatient follow up for this. - recommend a formal neuropsych consultation as an outpatient Peripheral neuropathy: -Continue gabapentin 100 mg TID Tobacco use: -Nicotine patch daily Dispo Planning -pt is essentially homeless as he was living with sister who will not take him back now. Will keep pt in hospital until safe dispo can be attained -CM working on disposition [facility] home in [facility] Diet: Regular CODE STATUS: Full code DVT prophylaxis: Deferred at this time Dispo: MedSurg for continued observation. CM working on [facility] home in [facility] Admission and Anticipated Discharge Date Admission Date: July 05, 2020 Supervising Physician Co-Signing Physician Notes I personally examined the patient and verified all fuentes points of history and exam, discussed case, and agree with decision making with Dr Kilgore. Sleeping comfortably. No new issues identified. vitals noted nad heent nc at breathing unlabored no accessory muscles good effort skin no rashes no pallor or icterus neuro no focal deficits/no asymmetry noted at rest seizure -keppra for seizure risk reduction. Outpatient follow-up homelessness -was living with sister who will not take him back now -working w case management on safe disposition - possibly [facility] home -unethical to discharge to [facility], will keep here until safe disposition can be arranged. Subjective Seen bedside, no acute overnight events. No additional seizures. Pt tolerating PO. No other acute concerns or complaints. Awaiting placement. Review of Systems Review of Systems: All systems reviewed & are unremarkable except as noted in HPI & below Physical Exam Constitutional: WD/WN, vitals as above Eyes: PERRL, conjunctivae normal, anicteric sclerae ENMT: external ear and nose normal, oropharynx normal Respiratory: normal respiratory effort, lungs clear to auscultation Cardiovascular: RRR, no murmur, no edema Gastrointestinal (Abdomen): normal bowel sounds, soft, nontender, no hepatosplenomegaly Skin: no rashes, warm and dry Neurologic: CN's II-XI intact bilaterally; no focal motor deficits Psychiatric: A+Ox3, euthymic affect Results & Data Results & Data ([facility]) Vital Signs (Past 12 Hours) Vital Signs Temp Pulse Resp BP Pulse Ox 07/07/20 07:13 37.0 C 78 16 139/74 91 Laboratory Results Laboratory Results - last 24 hr 07/06/20 07/07/20 07/07/20 20:19 06:16 06:16 WBC 10.02 RBC 3.95 L Hgb 12.3 L Hct 36.0 L MCV 91.1 MCH 31.1 MCHC 34.2 RDW Std Deviation 43.1 RDW Coeff of Sabra 12.8 Plt Count 202 MPV 9.1 Immature Gran % (Auto) 0.2 Neut % (Auto) 71.8 Lymph % (Auto) 18.7 [place] % (Auto) 8.8 Eos % (Auto) 0.4 Baso % (Auto) 0.1 Neut # (Auto) 7.20 H Lymph # (Auto) 1.87 [place] # (Auto) 0.88 H Eos # (Auto) 0.04 Baso # (Auto) 0.01 Immature Gran # (Auto) 0.02 Sodium 140 Potassium 3.7 Chloride 110 H Carbon Dioxide 28 Anion Gap 2.0 L BUN 12 Creatinine 0.70 Est Cr Clr Drug Dosing 81.8 Est GFR ( Amer) 108.5 Est GFR (Non-Af Amer) 93.6 BUN/Creatinine Ratio 17.2 Glucose 98 POC Glucose 103 H Calcium 8.6 Medications Administered Current Inpatient Medications Acetaminophen (Acetaminophen 325 Mg Tab) 650 mg PO Q4H PRN PRN Reason: pain/fever Stop: 08/05/20 00:41 Al Hydrox/Mg Hydrox/Simethicone (Aluminum/Magnesium Susp 30 Ml Udc) 30 ml PO Q6H PRN PRN Reason: Dyspepsia Stop: 08/05/20 00:41 Gabapentin (Gabapentin 100 Mg Cap) 100 mg PO TID [facility] Stop: 08/05/20 08:59 Last Admin: 07/07/20 08:46 Dose: 100 mg Documented by: Levetiracetam (Levetiracetam 250 Mg Tab) 750 mg PO BID [facility] Stop: 08/05/20 10:44 Last Admin: 07/07/20 08:47 Dose: 750 mg Documented by: Magnesium Hydroxide (Magnesium Hydroxide Susp 30 Ml Udc) 30 ml PO Q6H PRN PRN Reason: Constipation Stop: 08/05/20 00:41 Miscellaneous (Remove Nicoderm Patch) 1 ea N/A DAILY@0859 [facility] Stop: 08/05/20 08:58 Last Admin: 07/07/20 08:48 Dose: Not Given Documented by: Nicotine (Nicotine 14 Mg/24 Hr Patch) 14 mg TD QAM [facility] Stop: 08/05/20 08:59 Last Admin: 07/07/20 08:47 Dose: 14 mg Documented by: Ondansetron HCl (Ondansetron Inj 2 Mg/Ml 2 Ml Vial) 4 mg IV Q6H PRN PRN Reason: Nausea Stop: 08/05/20 00:41 Polyethylene Glycol (Polyethylene (Miralax) 17 Gm Pack) 17 gm PO DAILY PRN PRN Reason: Constipation Stop: 08/05/20 00:41 Resident Activity Tracking Resident Involvement: Resident Care Provided Care Provided: Adult Hospital Medicine
--- NOTE | 2020-07-07 14:56 | Billing Data ---
Date of Service July 07, 2020 Coding Level of Care Code 29689 Subseq Hosp Care Lvl 1
--- NOTE | 2020-07-07 21:01 | Electrocardiogram Report ---
Test Reason : Blood Pressure : / mmHG Vent. Rate : 081 BPM Atrial Rate : 081 BPM P-R Int : 174 ms QRS Dur : 102 ms QT Int : 384 ms P-R-T Axes : 063 027 041 degrees QTc Int : 446 ms Poor data quality, interpretation may be adversely affected Sinus rhythm with Premature atrial complexes Nonspecific ST abnormality Abnormal ECG When compared with ECG of 29-APR-2020 18:13, Premature atrial complexes are now Present Confirmed by Marcus Bergeron ([id number]) on 07/07/2020 9:00:57 PM Referred By: REFERRED SELF Confirmed By:Marcus Bergeron
[2020-07-08 06:01] LABS: Basophils # (auto) 0.01 K/uL (0-0.2); Basophils % (auto) 0.2 %; Eosinophils # (auto) 0.09 K/uL (0-0.5); Eosinophils % (auto) 1.4 %; Hematocrit (blood only) 35.3 % (42-52); Hemoglobin 12.3 g/dL (14.0-18.0); Immature Granulocytes # (auto) 0.01 K/uL (0.00-0.02); Immature Granulocytes % (auto) 0.2 %; Lymphocytes # (auto) 1.69 K/uL (1.2-3.4); Mean Corpuscular Hgb Conc 34.8 g/dL (32-36); Mean Corpuscular Volume 91.9 fL (80-100); Monocytes # (auto) 0.83 K/uL (0.11-0.59); Monocytes % (auto) 12.7 %; Neutrophils # (auto) 3.88 K/uL (1.4-6.5); Neutrophils % (auto) 59.5 %; Platelet Count 212 K/uL (130-400); RDW Standard Deviation 43.7 fL (36.4-46.3); Red Blood Count 3.84 M/uL (4.7-6.1); White Blood Count 6.51 K/uL (4.8-10.8)
[2020-07-08 06:37] LABS: BUN Creatinine Ratio 22.6 (10-20); Calcium 8.7 mg/dl (8.5-10.1); Creatinine Clr Calc Pharmacy 75.3 ml/min; Est GFR (African American) 104.9; Est GFR (Non-African American) 90.5; Potassium 3.6 mmol/L (3.5-5.1)
[2020-07-08] MEDS: GABAPENTIN 100 MG CAP PO SCH ×3 (08:31→20:22)
[2020-07-08] MEDS: NICOTINE 14 MG/24 HR PATCH TD SCH (08:31)
[2020-07-08] MEDS: levETIRAcetam 250 MG TAB PO SCH ×2 (08:31→20:22)
--- NOTE | 2020-07-08 12:38 | Hospitalist Progress Note ---
Date of Service July 08, 2020 Assessment & Plan (1) Generalized seizure: Jayme Butler is a 74-year-old male with past medical history significant for neuropathy, tobacco use, and questionable seizure disorder; presents to the ER following concern for seizure lasting approximately 1 minute. Seizure: -Uncertain etiology -Patient denied lack of sleep, Etoh or substance use in days leading up to seizure -Labs on admission unimpressive for significant electrolyte abnormalities or potential sources for seizure. -CT head : No acute intracranial findings -Brain MRI: No acute intracranial findings. No evidence of acute or subacute infarction. No evidence of intracranial mass. -Keppra loaded in ED. Continue keppra 750mg bid -Continue seizure precautions -EEG ordered, but can be done as an outpatient if discharge plan is established -Neurology consulted appreciate recommendations. Will f/u with neurology clinic in 4-6 weeks to check in Memory issues: - outpatient follow up with neuropsych eval Peripheral neuropathy: -Continue gabapentin 100 mg TID Normocytic chronic anemia: -stable h/h. Tobacco use: -Nicotine patch daily Dispo Planning -pt is essentially homeless as he was living with sister who will not take him back now. Will keep pt in hospital until safe dispo can be attained -CM working on [facility] in [facility] Diet: Regular CODE STATUS: Full code DVT prophylaxis: Deferred at this time [facility] CM working on [facility] in [place] Admission and Anticipated Discharge Date Admission Date: July 05, 2020 Supervising Physician Co-Signing Physician Notes Resident Physician Supervision Note: I independently interviewed and examined the patient and verified the fuentes history and physical, reviewed labs and image studies, discussed the case with the resident Dr. Clark and agree with the findings and care plan. Subjective No acute events overnight. Patient reports he is doing well - ready to leave hospital. He does report intermittent b/l leg pain. He denies weakness. No low back pain Review of Systems Review of Systems: All systems reviewed & are unremarkable except as noted in HPI & below Physical Exam Constitutional: WD/WN, vitals as above cooperative; no acute distress Eyes: PERRL, conjunctivae normal, anicteric sclerae ENMT: external ear and nose normal, oropharynx normal Neck: normal visual inspection and trachea midline Respiratory: normal respiratory effort, lungs clear to auscultation Cardiovascular: RRR, no murmur, no edema Heart Sounds: normal S1 and normal S2 Gastrointestinal (Abdomen): normal bowel sounds, soft, nontender, no hepatosplenomegaly Skin: no rashes, warm and dry Neurologic: moves all extremities Motor/Sensory: no sensory deficit +5/5 strength in bilateral lower extremities Psychiatric: A+Ox3, euthymic affect Results & Data Results & Data ([facility]) Vital Signs (Past 12 Hours) Vital Signs Temp Pulse Resp BP Pulse Ox 07/08/20 07:15 37 C 67 16 142/84 H 94 Resident Activity Tracking Resident Involvement: Resident Care Provided Care Provided: Adult Hospital Medicine
[2020-07-08] MEDS ORDERED: MELATONIN 3 MG TAB PO PRN (17:39)
[2020-07-08] MEDS ORDERED: LORazepam 2 MG/4 ML VIAL IV PRN (17:39)
[2020-07-09] MEDS: levETIRAcetam 250 MG TAB PO SCH (09:11)
[2020-07-09] MEDS: GABAPENTIN 100 MG CAP PO SCH ×2 (09:11→14:35)
[2020-07-09] MEDS: NICOTINE 14 MG/24 HR PATCH TD SCH (09:11)
--- NOTE | 2020-07-09 10:26 | XRay Report ---
XR lumbar spine 2-3V HISTORY: 74 years-old Male radicular leg pain chronic low back pain COMPARISON: Chest radiograph 04/29/2020 TECHNIQUE: 3 views of the lumbar spine FINDINGS: Mid lumbar levoscoliosis. 5 lumbar type vertebral segments are present. Severe multilevel interverteb ral disc space narrowing with advanced spondylitic spurring and facet arthrosis. No acute fracture or subluxation. Calcified plaque the abdominal aorta. Surgical clips and suture material project over t he abdomen. IMPRESSION: 1. No acute fracture or subluxation. 2. Levoscoliosis with advanced degenerative changes as above. ACT 112: Negative or not required by law. The above report was generated using voice recognition software. It may contain grammatical, syntax o r spelling errors. Electronically signed by: Mando Monson M.D. 07/09/2020 10:25 AM
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
== END 2020-07-09 17:00 | DRG 101 ==
LOC: ED 20:21 → SUATTDRO 23:51 → 3N 23:51